=== PATIENT | male | born 1940 | race Caucasian/White ===

== ENCOUNTER 2019-01-20 15:22 | Inpatient (IN) ==
--- NOTE | 2019-01-20 15:56 | DR.HYPOGLY ---
HPI Time Seen Time Seen by Provider: 01/20/19 15:56 PCP Primary Care Physician: DOMINGUEZ Complaint Chief Complaint Doctors Comments: Patient is a 78-year-old who presents to the ED for elevated glucose. He states that his glucose was in the 500s then on recheck was in the 900s. This happened today. The patient also states today that he has had chills and muscle aches and feeling fatigued. He also reports that he has a cut on his foot that has some purulent drainage. He was advised by his primary care doctor to come to the ED. Chief Complaint:: PT CHECKED BS WITH HOME MONITOR IT WAS L22, RECHECKED 512, RECHECKED 919. USED DIFFERENT FINGERS ON EACH RECHECK. PT JERKING AND FREEZING. PT HAS SMALL TOE SORE, PT STATED TOE NAIL STARTED GROWING UNDER AND CUT TOE NAIL. NOW IT IS SORE Self Treatment fo Chief Complaint: CALLED NURSE FOR AND THEY TOLD PT TO COME TO ER Source History Provided: Patient and Family Member Mode of Arrival Mode of Arrival: Ambulatory Timing Onset of Chief Complaint: 01/20/19 PMH PMH Past Medical History: Yes Past Medical History: Arthritis, Diabetes and Hypertension Past Surgical History: Yes Surgical History: CABG/Valve Surgery Past Surgical History Comment: FIVE BYPASSES ON HEART HERNIA INGUINAL Family History History of Family Medical Conditions: Yes Family Medical History: Diabetes Mellitus and Hypertension Social History Type of Tobacco Use: None Does any household member use tobacco: No Alcohol Use: None Do you use any recreational Drugs:: No Lives With: Spouse Lives Where: Home infectious screening In the last 2 months have you had wt loss of >10#?: NO Have you had fever, night sweats or hemotysis?: No Have you traveled outside the country in the last 6 months?: No Isolation: Standard ROS Review of Systems Constitutional: Fever and Weakness Eyes: No Symptoms Reported ENTM: No Symptoms Reported Respiratoy: No Symptoms Reported Cardiovascular: No Symptoms Reported Gastrointestinal/Abdominal: Abdominal Pain Genitourinary: No Symptoms Reported Neurological: No Symptoms Reported Musculoskeletal: No Symptoms Reported Integumentary: No Symptoms Reported Hematologic/Lymphatic: No Symptoms Reported Endocrine: No Symptoms Reported Psychiatric: No Symptoms Reported All Other Systems: Reviewed and Negative PE Vital Signs Vitals: Temperature 98.6 F Pulse Rate [Left Brachial] 92 Pulse Rate 81 Respiratory Rate 18 Blood Pressure [Right Arm] 168/68 Blood Pressure [Left Arm] 139/65 Blood Pressure 132/60 O2 Sat by Pulse Oximetry 99 General Limitations: No Limitations General Appearance: Alert and In Distress Eyes Eye exam: Normal Appearance, PERRL and EOMI ENT ENT Exam: Normal Exam Neck Neck Exam: Normal Inspection and Full ROM Respiratory Respiratory Exam: Normal Lung Sounds Bilat; negative Respiratory Distress Cardiovascular Cardiovascular Exam: Regular Rate and Normal Rhythm Abdominal Exam Abdominal Exam: Normal Inspection, Normal Bowel Sounds and Soft Extremities Extremities Exam: Normal Inspection and Full ROM Neurologic Neurological Exam: Alert, Oriented X3 and CN II-XII Intact Skin Skin Exam: Warm, Dry and Intact COURSE Treatment Treatment: Critical Care: The probability of sudden, clinically significant deterioration in the patient's condition required the highest level of my preparedness to intervene urgently. The services I provided to this patient were to treat and/ or prevent clinically significant deterioration that could result in: . Services include the following: chart date review, reviewing nursing notes and/ or old charts, documentation time, acquisition consultant collaboration regarding findings and treatment options, medication orders and management, direct patient care, vital sign assessments and ordering, interpreting and reviewing diagnostic studies/ lab tests. Aggregate critical care time was 45 minutes, which includes only the time during which I was engaged in work directly related to the patient's care, as described above, whether at the bedside or elsewhere in the Emergency Department. It did not include the time spent performing other reported procedures or the services of residents, students, nurses, or physician assistants. Reevaluation 1st: Unchanged (16:28 pt with family) 2nd: Unchanged (17;06) 3rd: Improved (17:45 pt feeling improved. ) Consultation Called: 17:05 Call Returned: 17:06 Consultation Comments: hospitalist discussed care plan, with dr barron about case he accepts admission Education/Counseling Education/Counseling: Patient, Family, Education and Counseling Educated On: Treatment, Diagnosis, Prognosis and Needs for Follow Up ROR Labs Reviewed Laboratory Results Reviewed?: Yes Result Diagrams: 01/23/19 04:35 01/23/19 04:35 Laboratory: 01/20/19 23:30 Urine,Clean Catch Urine Culture - Final 01/20/19 16:27 Blood Blood Culture - Preliminary 01/20/19 16:20 Blood Blood Culture - Preliminary 01/20/19 20:45 Sputum - Expectorated Sputum Sputum Culture - Final Enterobacter Cloacae 01/20/19 20:45 Sputum - Expectorated Sputum - Final WBC 15.9 X10^3/uL (3.6-10.0) H 01/21/19 04:25 RBC 4.17 X10^6/uL (4.7-6.0) L 01/21/19 04:25 Hgb 13.3 g/dL (13.5-18.0) L 01/21/19 04:25 Hct 39.6 % (42.0-54.0) L 01/21/19 04:25 MCV 95.0 fL (80.0-100.0) 01/21/19 04:25 MCH 31.9 pg (27.0-34.0) 01/21/19 04:25 MCHC 33.6 g/dL (33.0-35.0) 01/21/19 04:25 RDW 13.9 % (11.6-16.5) 01/21/19 04:25 Plt Count 190 X10^3/uL (150.0-450.0) 01/21/19 04:25 MPV 9.6 fL (7.4-11.0) 01/21/19 04:25 Neut % (Auto) 86.4 % (42.0-75.0) H 01/21/19 04:25 Lymph % (Auto) 5.0 % (21.0-51.0) L 01/21/19 04:25 [place] % (Auto) 8.3 % (0.0-13.0) 01/21/19 04:25 Eos % (Auto) 0.0 % (0.9-2.9) L 01/21/19 04:25 Baso % (Auto) 0.3 % (0.2-1.0) 01/21/19 04:25 Neut # (Auto) 13.7 x10^3/uL (2.2-4.8) H 01/21/19 04:25 Lymph # (Auto) 0.8 X10^3/uL (1.3-2.9) L 01/21/19 04:25 [place] # (Auto) 1.3 x10^3/uL (0.3-0.8) H 01/21/19 04:25 Eos # (Auto) 0.0 x10^3/uL (0.0-0.2) 01/21/19 04:25 Baso # (Auto) 0.0 X10^3/uL (0.0-0.1) 01/21/19 04:25 Absolute Nucleated RBC 0.0 /100WBC 01/21/19 04:25 Sodium 138 mmol/L (136-145) 01/21/19 04:25 Corrected Sodium 140 mmol/L (136-145) 01/21/19 04:25 Potassium 4.1 mmol/L (3.5-5.1) 01/21/19 04:25 Chloride 103 mmol/L (98-107) 01/21/19 04:25 Carbon Dioxide 27.2 mmol/L (21-32) 01/21/19 04:25 BUN 22 mg/dL (7-18) H 01/21/19 04:25 Creatinine 1.49 mg/dL (0.70-1.30) H 01/21/19 04:25 Est GFR (MDRD) Af Amer 59 (>60) 01/21/19 04:25 Est GFR (MDRD) Non-Af 48 (>60) L 01/21/19 04:25 Glucose 185 mg/dL (65-99) H 01/21/19 04:25 POC Glucose (mg/dL) 164 mg/dL (65-99) H 01/21/19 05:18 Lactic Acid 1.6 mmol/L (0.4-2.0) 01/20/19 22:10 Calcium 8.2 mg/dL (8.5-10.1) L 01/21/19 04:25 Corrected Calcium 9.2 mg/dL (8.5-10.1) 01/21/19 04:25 Magnesium 2.0 mg/dL (1.7-2.9) 01/21/19 04:25 Total Bilirubin 1.10 mg/dL (0.2-1.0) H 01/21/19 04:25 AST 17 Units/L (15-37) 01/21/19 04:25 ALT 19 Units/L (12-78) 01/21/19 04:25 Alkaline Phosphatase 41 Units/L (46-116) L 01/21/19 04:25 Total Protein 6.2 g/dL (6.4-8.2) L 01/21/19 04:25 Albumin 2.7 g/dL (3.4-5.0) L 01/21/19 04:25 Globulin 3.5 g/dL (2.5-4.5) 01/21/19 04:25 Albumin/Globulin Ratio 0.8 Ratio (1.1-2.1) L 01/21/19 04:25 Specimen Type Random urine 01/20/19 18:40 Urine Color Yellow (YELLOW) 01/20/19 18:40 Urine Appearance Clear (CLEAR) 01/20/19 18:40 Urine pH 7.0 (5.0 - 8.0) 01/20/19 18:40 Ur Specific [place] 1.010 (1.000-1.030) 01/20/19 18:40 Urine Protein 1+ (NEGATIVE) 01/20/19 18:40 Urine Glucose (UA) 3+ (NEGATIVE) 01/20/19 18:40 Urine Ketones Negative (NEGATIVE) 01/20/19 18:40 Urine Occult Blood 2+ (NEGATIVE) 01/20/19 18:40 Urine Nitrite Negative (NEGATIVE) 01/20/19 18:40 Urine Bilirubin 2+ (NEGATIVE) 01/20/19 18:40 Urine Urobilinogen Normal (NORMAL) 01/20/19 18:40 Ur Leukocyte Esterase 2+ (NEGATIVE) 01/20/19 18:40 Urine RBC 3-5 /HPF (0-3) A 01/20/19 18:40 Urine WBC 10-20 /HPF (0-5) A 01/20/19 18:40 Ur Squamous Epith Cells Rare /HPF (NEGATIVE) 01/20/19 18:40 Urine Bacteria Negative /HPF (NEGATIVE) 01/20/19 18:40 Urine Mucus Rare /HPF (NEGATIVE) 01/20/19 18:40 Ur Culture Indicated? No/not indicated 01/20/19 18:40 Acetone, Semi-Quant Negative (NEGATIVE) 01/20/19 16:05 Other Results Comments: [id number] [id number] : 1940ex: MLocation: ER Order Number(s): [id number](s):CHEST, 1 VIEW Ordering Physician: Jesse Mullen Primary Care: Henok Small Service Date: 01/20/19 Service Time: 1630 HISTORY: Fever Study: Portable chest Comparison: 01/06/2014 Findings: Sternotomy wires. Cardiomegaly appears grossly similar to prior. The left heart border is somewhat obscured and there is patchy consolidative left lower lung opacity. There is streaky right base opacity. No visible pneumothorax or overt pulmonary edema. No sizable effusion. No acute osseous finding. Sequelae of valve replacement. IMPRESSION: 1. Evidence of left base pneumonia. Right base atelectasis or infiltrate. Radiographic follow-up is recommended. [id number]: [id number] : 1940ex: MLocation: ER Order Number(s): [id number](s):FOOT, RIGHT Ordering Physician: Jesse Mullen Primary Care: Henok Clay Dominguez Service Date: 01/20/19 Service Time: 163 HISTORY: Fever Study: Three views right foot Comparison: None Findings: No visible fracture or dislocation. Joint spaces appear preserved. No destructive osseous changes are seen. Prominent arterial calcifications are noted. Moderate heel spurs. Dorsal talonavicular spurring is seen. No soft tissue emphysema or visible radiopaque foreign body. IMPRESSION: 1. No acute osseous finding. Reported By: Compared to prior EKG Dated: 01/20/14 Rate: 106 [place]: Normal Rhythm: ST Block: None Hypertrophy: None ST: Old and Inf Opioid Opioid Risk Tool Total: 0 Total Score Risk Category: Low Risk Copyright: David RAMÍREZ predicting aberrant behaviors Diagnosis Discharge Problem: Sepsis Narrative Support Text: admitted to hospitalist. Patient presents for hyperglycemia is found to not be in DKA. Patient's vitals are positive for Sirs criteria patient is started on IV fluids and antibiotics within the ED with a 2-hour. Patient's blood cultures were drawn before antibiotics patient was admitted to hospitalist patient had frequent rechecks. Instructions Instructions: Upper Respiratory Infection, Adult, [id number] Type 2 Diabetes Mellitus, Self Care, Adult, Coij-vk-Lsea Hypertension, [id number]-[id number] Form - Blood Pressure Record Sheet Managing Your Hypertension Community-Acquired Pneumonia, Adult Forms: Excuse From Work or School Excuse From Work Patient Portal
[2019-01-20 16:18] LABS: BASOPHILS # (AUTO) 0.1 X10^3/uL (0.0-0.1); BASOPHILS % (AUTO) 0.4 % (0.2-1.0); EOSINOPHILS # (AUTO) 0.2 x10^3/uL (0.0-0.2); EOSINOPHILS % (AUTO) 1.3 % (0.9-2.9); HEMATOCRIT 44.6 % (42.0-54.0); HEMOGLOBIN 15.2 g/dL (13.5-18.0); LYMPHOCYTES # (AUTO) 0.6 X10^3/uL (1.3-2.9); LYMPHOCYTES % (AUTO) 3.8 % (21.0-51.0); MEAN CORPUSCULAR HEMOGLOBIN 32.3 pg (27.0-34.0); MEAN CORPUSCULAR HGB CONC 34.1 g/dL (33.0-35.0); MEAN CORPUSCULAR VOLUME 94.8 fL (80.0-100.0); MEAN PLATELET VOLUME 9.2 fL (7.4-11.0); MONOCYTES # (AUTO) 1.1 x10^3/uL (0.3-0.8); MONOCYTES % (AUTO) 7.2 % (0.0-13.0); NEUTROPHILS # (AUTO) 13.9 x10^3/uL (2.2-4.8); NEUTROPHILS % (AUTO) 87.3 % (42.0-75.0); PLATELET COUNT 208 X10^3/uL (150.0-450.0); RED BLOOD COUNT 4.71 X10^6/uL (4.7-6.0); RED CELL DISTRIBUTION WIDTH 13.7 % (11.6-16.5); WHITE BLOOD COUNT 15.9 X10^3/uL (3.6-10.0)
[2019-01-20 16:27] LABS: SERUM ACETONE NEGATIVE (NEGATIVE)
[2019-01-20 16:33] LABS: ALANINE AMINOTRANSFERASE 28 Units/L (12-78); ALBUMIN 3.4 g/dL (3.4-5.0); ALKALINE PHOSPHATASE 66 Units/L (46-116); ASPARTATE AMINO TRANSFERASE 21 Units/L (15-37); BLOOD UREA NITROGEN 25 mg/dL (7-18); CALCIUM 8.9 mg/dL (8.5-10.1); CARBON DIOXIDE 28.4 mmol/L (21-32); CHLORIDE 100 mmol/L (98-107); COR NA(FOR HYPERGLY) 138 mmol/L (136-145); CREATININE 1.44 mg/dL (0.70-1.30); SODIUM 135 mmol/L (136-145); TOTAL PROTEIN 7.2 g/dL (6.4-8.2); eGFR NON BLACK RACES 50 (>60)
[2019-01-20] MEDS ORDERED: ZOSYN VIAL 3.375 GRAMS 3.375 G in NS 100 ML IV + SPIKE MINIBAG* 100 ML IV ONE (16:36)
[2019-01-20] MEDS ORDERED: VANCOMYCIN HCL 1 G in D5W 250 ML IV 250 ML IV ONE (16:36)
[2019-01-20] MEDS ORDERED: VANCOMYCIN HCL ONE (16:45)
[2019-01-20] MEDS ORDERED: NS 250 ML IV 250 ML IV ONE (16:46)
[2019-01-20] MEDS: NS 1000 ML 1,000 ML IV SCH (16:55)
--- NOTE | 2019-01-20 17:00 | RAD ---
HISTORY: Fever Study: Portable chest Comparison: 01/06/2014 Findings: Sternotomy wires. Cardiomegaly appears grossly similar to prior. The left heart border is somewhat obscured and there is patchy consolidative left lower lung opacity. There is streaky right base opacity. No visible pneumothorax or overt pulmonary edema. No sizable effusion. No acute osseous finding. Sequelae of valve replacement. IMPRESSION: 1. Evidence of left base pneumonia. Right base atelectasis or infiltrate. Radiographic follow-up is recommended. Reported By:
--- NOTE | 2019-01-20 17:02 | RAD ---
HISTORY: Fever Study: Three views right foot Comparison: None Findings: No visible fracture or dislocation. Joint spaces appear preserved. No destructive osseous changes are seen. Prominent arterial calcifications are noted. Moderate heel spurs. Dorsal talonavicular spurring is seen. No soft tissue emphysema or visible radiopaque foreign body. IMPRESSION: 1. No acute osseous finding. Reported By:
[2019-01-20] MEDS ORDERED: SALINE 3% 15 ML NEB TX NEB ONE (17:55)
[2019-01-20 19:02] VITALS: BMI 34.7
[2019-01-20 19:15] LABS: BILIRUBIN,URINE 2+ (NEGATIVE); BLOOD/HEMOGLOBIN,URINE 2+ (NEGATIVE); GLUCOSE, URINE 3+ (NEGATIVE); KETONES,URINE NEGATIVE (NEGATIVE); LEUKOCYTE ESTERASE ,URINE 2+ (NEGATIVE); NITRITES,URINE NEGATIVE (NEGATIVE); PROTEIN,URINE 1+ (NEGATIVE); UROBILINOGEN,URINE NORMAL (NORMAL)
[2019-01-20 19:23] LABS: APPEARANCE,URINE CLEAR (CLEAR); COLOR,URINE YELLOW (YELLOW)
[2019-01-20 19:24] LABS: BACTERIA,URINE NEGATIVE /HPF (NEGATIVE); MUCUS,URINE RARE /HPF (NEGATIVE); SQUAMOUS EPITHELIAL CELL,UR RARE /HPF (NEGATIVE)
[2019-01-20] MEDS: MAGNESIUM SULFATE 1 GRAM/100 mL PREMIX 1 GM/100 ML BAG IV PRN ×4 (20:05→22:31)
[2019-01-20] MEDS: DUONEB 0.5 MG/3 MG NEB SCH (20:18)
[2019-01-20] MEDS: HumuLIN R SUBCUT PRN (20:26)
[2019-01-20] MEDS: SNACK - Diabetic Appropriate PO SCH (20:27)
[2019-01-20] MEDS ORDERED: NS 100 ML IV + SPIKE MINIBAG* 100 ML IV ONE (20:31)
[2019-01-20] MEDS: ZOSYN VIAL 3.375 GRAMS IV SCH (21:47)
[2019-01-21] MEDS: DUONEB 0.5 MG/3 MG NEB SCH ×6 (01:08→20:05)
[2019-01-21] MEDS ORDERED: NS 100 ML IV + SPIKE MINIBAG* 100 ML IV ONE (04:12)
[2019-01-21] MEDS: ZOSYN VIAL 3.375 GRAMS IV SCH (05:01)
[2019-01-21 05:39] LABS: BASOPHILS % (AUTO) 0.3 % (0.2-1.0); HEMATOCRIT 39.6 % (42.0-54.0); HEMOGLOBIN 13.3 g/dL (13.5-18.0); LYMPHOCYTES # (AUTO) 0.8 X10^3/uL (1.3-2.9); MEAN CORPUSCULAR HEMOGLOBIN 31.9 pg (27.0-34.0); MEAN CORPUSCULAR HGB CONC 33.6 g/dL (33.0-35.0); MEAN PLATELET VOLUME 9.6 fL (7.4-11.0); MONOCYTES # (AUTO) 1.3 x10^3/uL (0.3-0.8); MONOCYTES % (AUTO) 8.3 % (0.0-13.0); NEUTROPHILS # (AUTO) 13.7 x10^3/uL (2.2-4.8); NEUTROPHILS % (AUTO) 86.4 % (42.0-75.0); PLATELET COUNT 190 X10^3/uL (150.0-450.0); RED BLOOD COUNT 4.17 X10^6/uL (4.7-6.0); RED CELL DISTRIBUTION WIDTH 13.9 % (11.6-16.5); WHITE BLOOD COUNT 15.9 X10^3/uL (3.6-10.0)
[2019-01-21 05:42] LABS: ALBUMIN 2.7 g/dL (3.4-5.0); CALCIUM 8.2 mg/dL (8.5-10.1); CARBON DIOXIDE 27.2 mmol/L (21-32); COR CA(FOR HYPOALB) 9.2 mg/dL (8.5-10.1); CREATININE 1.49 mg/dL (0.70-1.30); TOTAL PROTEIN 6.2 g/dL (6.4-8.2)
--- NOTE | 2019-01-21 06:03 | RAD ---
History: Follow-up of pneumonia Study: Portable AP chest Comparison: Yesterday Findings: There is unchanged cardiomegaly status post CABG. There is persistent infiltrate at the left lung base. There is subsegmental atelectasis or consolidation at the right lung base as well. Impression: 1. Persistent infiltrate at the left lung base suggesting pneumonia 2. Unchanged cardiomegaly 3. Probable subsegmental atelectasis at the right lung base Reported By:
[2019-01-21] MEDS: NS 1000 ML 1,000 ML IV SCH ×2 (06:10→21:13)
[2019-01-21] MEDS ORDERED: PHARMACY CONSULT - DOSE _____ XX SCH (10:00)
--- NOTE | 2019-01-21 10:22 | DR.H&P ---
H&P - History & Physical for Day of: H&P Date: 01/20/19 - Chief Complaint Chief Complaint: COUGH, CHILLS, FEVER, INCREASED BLOOD SUGAR - History of Present Illness History of Present Illness: IS A 78 YEAR OLD MALE WHO PRESENTED TO THE ER WITH COMPLAINTS OF CHILLS AND FEVER. HE ALSO REPORTED A COUGH, A TOE WOUND, AND INCREASED BLOOD GLUCOSE LEVELS. SYMPTOMS REPORTEDLY STARTED ON THE MORNING OF ARRIVAL. ON ARRIVAL TO THE ER, VITALS WERE 101.0-97-20-93%-132/60. LABS WERE OBTAINED AND REVEALED: 15.9, SODIUM 135, BUN 25, CREATININE 1.44, GLUCOSE 233, TOTAL BILI 1.10, MAGNESIUM 1.2, TOTAL BILI 1.10, LACTIC ACID 2.2. A URINALYSIS WAS OBTAINED AND REVEALED: WBC 10-20, RBC 3-5, BACTERIA NEGATIVE, LEUKOCYTES 2+, OCCULT BLOOD 2+, GLUCOSE 3+. ACETONES WERE NEGATIVE. BLOOD, URINE, AND SPUTUM CULTURE WERE OBTAINED. A CHEST XRAY WAS OBTAINED AND REVEALED: Evidence of left base pneumonia. Right base atelectasis or infiltrate. A RIGHT FOOT XRAY WAS OBTAINED AND REVEALED: NO ACUTE OSSEOUS FINDINGS. EKG REVEALED: SINUS TACHYCARDIA WITH HR 106. HE WAS GIVEN VANCOMYCIN 1G IV X 1 IN THE ER. HE WAS ADMITTED FOR FURTHER EVALUATION AND TREATMENT OF LEFT LOWER LOBE PNEUMONIA AND SEPSIS. HE WAS STARTED ON ZOSYN 3.375G IV TID, VANCOMYCIN 1G IV DAILY, HUMULIN R SLIDING SCALE, RESPIRATORY TREATMENTS, NORMAL SALINE AT 50ML/HR, AND SUPPLEMENTAL OXYGEN. OTHERWISE, WE PLAN TO FOLLOW UP WITH AM LABS AND CHEST XRAY AND CONTINUE TO MONITOR. - Past Medical History Past Medical History: Hypertension, Diabetes, Arthritis - Past Surgical History Surgical History: CABG/Valve Surgery - Family History Family Medical History: [place], Coronary Artery Disease - Social History Does patient currently use any type of tobacco product: No Have you used tobacco products in the last 12 months: No Type of Tobacco Use: None Does any household member use tobacco: No Alcohol Use: None Drug Use: None Prescription drug monitoring program results: PDMP was not reviewed - Medications Home Medications: glipizide Allergy (Mild, Verified 01/20/19 18:05) CONTINUE taking the following medications C,E,zinc,copper [id number] [Ocuvite Adult 50 Plus] 1 cap PO DAILY 01/21/19 [History] cetirizine 10 mg PO DAILY 01/21/19 [History] cholecalciferol (vitamin D3) [Vitamin D3] 4,000 unit PO DAILY 01/21/19 [History] etodolac 300 mg PO TID PRN 01/21/19 [History] finasteride 5 mg PO DAILY 01/21/19 [History] levothyroxine 50 mcg PO DAILY 01/21/19 [History] metformin 1,000 mg PO BIDWM 01/21/19 [History] metoprolol tartrate 12.5 mg PO BID 01/21/19 [History] multivit,hwvemht-udk-fookz acd [One-A-Day Proactive 65 Plus] 400 mcg PO DAILY 01/21/19 [History] sildenafil 50 mg PO PRN PRN 01/21/19 [History] simvastatin 40 mg PO HS 01/21/19 [History] terazosin 4 mg PO HS 01/21/19 [History] testosterone cypionate 200 mg IM .EVERYTWOWEEKS 01/21/19 [History] - Review of Systems Constitutional: Fever, Chills, Weakness Eyes: No Symptoms Reported ENT: No Symptoms Reported Respiratory: See HPI, Cough, Shortness of Breath Cardiovascular: No Symptoms Reported Gastrointestinal: No Symptoms Reported Genitourinary: No Symptoms Reported Musculoskeletal: Other (RIGHT FOOT PAIN ) Skin: Wound (RIGHT TOE ) Neurological: Weakness - Physical Exam Vital Signs: Temperature 98.6 F Pulse Rate [Left Brachial] 92 Pulse Rate 86 Respiratory Rate 18 Blood Pressure [Right Arm] 168/68 Blood Pressure [Left Arm] 139/65 Blood Pressure 132/60 O2 Sat by Pulse Oximetry 93 Oriented: Normal Eyes: Normal Ear: Normal Nose: Normal Throat: Normal Respiratory: Rhonchi Throughout, Wheezes Throughout Cardiovascular: Tachycardia. negative: S3, S4, Murmur : Normal Auscultation: Bowel Sounds: Normal Palpation: Normal Tenderness: Normal Skin: Normal Musculoskeletal: Normal Psychiatric: Normal Mood Description: Calm Affect: Normal Speech Pattern: Clear - Assessment/Plan (1) Pneumonia Qualifiers: Pneumonia type: due to unspecified organism Laterality: left Lung location: lower lobe of lung Qualified Code(s): J18.1 - Lobar pneumonia, unspecified organism Status: Acute Plan: IV ZOSYN, IV VANCOMYCIN, RESPIRATORY [place], SUPPLEMENTAL OXYGEN, MONITOR LABS AND CHEST XRAY (2) Sepsis Qualifiers: Sepsis type: sepsis due to unspecified organism Sepsis acute organ dysfunction status: unspecified Qualified Code(s): A41.9 - Sepsis, unspecified organism Status: Acute Plan: IV ZOSYN, IV VANCOMYCIN, IV FLUIDS, CONTINUE TO MONITOR - Allergies Allergies/Adverse Reactions: Allergies Allergy/AdvReac Type Severity Reaction Status Date / Time glipizide Allergy Mild Verified 01/20/19 18:05
[2019-01-21] MEDS: VANCOMYCIN HCL 1 G in D5W 250 ML IV 250 ML IV SCH (10:51)
[2019-01-21] MEDS: LOVENOX INJ 40 MG SYR SC SCH ×2 (11:43→11:46)
[2019-01-21] MEDS: HumuLIN R SUBCUT PRN ×3 (11:45→20:36)
[2019-01-21] MEDS: ZOSYN VIAL 3.375 GRAMS 3.375 G in NS 100 ML IV + SPIKE MINIBAG* 100 ML IV SCH ×2 (14:08→21:13)
--- NOTE | 2019-01-21 18:34 | PCM.PROG ---
Progress Note - Progress Note for Day of Date of Exam: 01/21/19 - Subjective Subjective: WAS ADMITTED FOR LEFT LOWER LOBE PNEUMONIA AND SEPSIS. TODAY, HE IS ALERT AND ORIENTED, LYING IN BED ON MORNING ROUNDS. HE CONTINUES WITH COMPLAINTS OF SHORTNESS OF BREATH AND COUGH. ON EXAMINATION, HEART IS REGULAR IN RATE AND RHYTHM. BILATERAL LUNGS CONTINUE WITH SCATTERED WHEEZING AND RHONCHI. ABDOMEN IS ROUND, SOFT, AND NON-TENDER WITH NORMAL BOWEL SOUNDS NOTED IN ALL QUADRANTS. HIS VITALS THIS MORNING ARE: 98.6-92-18-99%-168/68. LABS WERE OBTAINED. ABNORMAL LAB VALUES INCLUDE THE FOLLOWING: WBC 15.9, RBC 4.17, HGB 13.3, HCT 39.6, BUN 22, CREATININE 1.49, GLUCOSE 185, CALCIUM 8.2, TOTAL BILI 1.10, ALK PHOS 41, TOTAL PROTEIN 6.2, ALBUMIN 2.7. BLOOD, URINE, AND SPUTUM CULTURE PENDING. A CHEST XRAY WAS OBTAINED TODAY AND REVEALED: Persistent infiltrate at the left lung base suggesting pneumonia. Unchanged cardiomegaly. Probable subsegmental atelectasis at the right lung base. HE IS CURRENTLY RECEIVING ZOSYN 3.375G IV TID, VANCOMYCIN 1G IV DAILY, HUMULIN R SLIDING SCALE, RESPIRATORY TREATMENTS, NORMAL SALINE AT 50ML/HR, AND SUPPLEMENTAL OXYGEN. WE WILL CONTINUE WITH CURRENT PLAN OF CARE TODAY. OTHERWISE, WE PLAN TO FOLLOW UP WITH AM LABS AND CHEST XRAY AND CONTINUE TO MONITOR. - Past Medical Family Social History Past Med/Fam/Surg Hx: No changes since H&P Allergies: Allergies glipizide Allergy (Mild, Verified 01/20/19 18:05) - Review of Systems ROS: No change since H&P - Vital Signs and I&O's Vital Signs: Temperature 98.6 F Pulse Rate [Left Brachial] 79 Pulse Rate 84 Respiratory Rate 20 Blood Pressure [Right Arm] 144/70 Blood Pressure [Left Arm] 139/65 Blood Pressure 132/60 O2 Sat by Pulse Oximetry 99 Intake and Output: Intake & Output 01/19/19 01/20/19 01/21/19 01/22/19 11:59 11:59 11:59 11:59 Intake Total 2134 Balance 2134 - Physical Exam Oriented: Normal Eyes: Normal Ear: Normal Nose: Normal Throat: Normal Respiratory: Generalized Cardiovascular: Normal. negative: S3, S4, Murmur : Normal Auscultation: Bowel Sounds: Normal Palpation: Normal Tenderness: Normal Skin: Normal Musculoskeletal: Normal Psychiatric: Normal Mood Description: Calm Affect: Normal Speech Pattern: Clear - Laboratory and Diagnostics Result Diagrams: 01/21/19 04:25 01/21/19 04:25 Labs: 01/20/19 20:45 Sputum - Expectorated Sputum Sputum Culture - Preliminary 01/20/19 20:45 Sputum - Expectorated Sputum - Final Laboratory WBC 15.9 X10^3/uL (3.6-10.0) H 01/21/19 04:25 RBC 4.17 X10^6/uL (4.7-6.0) L 01/21/19 04:25 Hgb 13.3 g/dL (13.5-18.0) L 01/21/19 04:25 Hct 39.6 % (42.0-54.0) L 01/21/19 04:25 MCV 95.0 fL (80.0-100.0) 01/21/19 04:25 MCH 31.9 pg (27.0-34.0) 01/21/19 04:25 MCHC 33.6 g/dL (33.0-35.0) 01/21/19 04:25 RDW 13.9 % (11.6-16.5) 01/21/19 04:25 Plt Count 190 X10^3/uL (150.0-450.0) 01/21/19 04:25 MPV 9.6 fL (7.4-11.0) 01/21/19 04:25 Neut % (Auto) 86.4 % (42.0-75.0) H 01/21/19 04:25 Lymph % (Auto) 5.0 % (21.0-51.0) L 01/21/19 04:25 [place] % (Auto) 8.3 % (0.0-13.0) 01/21/19 04:25 Eos % (Auto) 0.0 % (0.9-2.9) L 01/21/19 04:25 Baso % (Auto) 0.3 % (0.2-1.0) 01/21/19 04:25 Neut # (Auto) 13.7 x10^3/uL (2.2-4.8) H 01/21/19 04:25 Lymph # (Auto) 0.8 X10^3/uL (1.3-2.9) L 01/21/19 04:25 [place] # (Auto) 1.3 x10^3/uL (0.3-0.8) H 01/21/19 04:25 Eos # (Auto) 0.0 x10^3/uL (0.0-0.2) 01/21/19 04:25 Baso # (Auto) 0.0 X10^3/uL (0.0-0.1) 01/21/19 04:25 Absolute Nucleated RBC 0.0 /100WBC 01/21/19 04:25 Sodium 138 mmol/L (136-145) 01/21/19 04:25 Corrected Sodium 140 mmol/L (136-145) 01/21/19 04:25 Potassium 4.1 mmol/L (3.5-5.1) 01/21/19 04:25 Chloride 103 mmol/L (98-107) 01/21/19 04:25 Carbon Dioxide 27.2 mmol/L (21-32) 01/21/19 04:25 BUN 22 mg/dL (7-18) H 01/21/19 04:25 Creatinine 1.49 mg/dL (0.70-1.30) H 01/21/19 04:25 Est GFR (MDRD) Af Amer 59 (>60) 01/21/19 04:25 Est GFR (MDRD) Non-Af 48 (>60) L 01/21/19 04:25 Glucose 185 mg/dL (65-99) H 01/21/19 04:25 POC Glucose (mg/dL) 215 mg/dL (65-99) H 01/21/19 16:51 Lactic Acid 1.6 mmol/L (0.4-2.0) 01/20/19 22:10 Calcium 8.2 mg/dL (8.5-10.1) L 01/21/19 04:25 Corrected Calcium 9.2 mg/dL (8.5-10.1) 01/21/19 04:25 Magnesium 2.0 mg/dL (1.7-2.9) 01/21/19 04:25 Total Bilirubin 1.10 mg/dL (0.2-1.0) H 01/21/19 04:25 AST 17 Units/L (15-37) 01/21/19 04:25 ALT 19 Units/L (12-78) 01/21/19 04:25 Alkaline Phosphatase 41 Units/L (46-116) L 01/21/19 04:25 Total Protein 6.2 g/dL (6.4-8.2) L 01/21/19 04:25 Albumin 2.7 g/dL (3.4-5.0) L 01/21/19 04:25 Globulin 3.5 g/dL (2.5-4.5) 01/21/19 04:25 Albumin/Globulin Ratio 0.8 Ratio (1.1-2.1) L 01/21/19 04:25 Specimen Type Random urine 01/20/19 18:40 Urine Color Yellow (YELLOW) 01/20/19 18:40 Urine Appearance Clear (CLEAR) 01/20/19 18:40 Urine pH 7.0 (5.0 - 8.0) 01/20/19 18:40 Ur Specific [place] 1.010 (1.000-1.030) 01/20/19 18:40 Urine Protein 1+ (NEGATIVE) 01/20/19 18:40 Urine Glucose (UA) 3+ (NEGATIVE) 01/20/19 18:40 Urine Ketones Negative (NEGATIVE) 01/20/19 18:40 Urine Occult Blood 2+ (NEGATIVE) 01/20/19 18:40 Urine Nitrite Negative (NEGATIVE) 01/20/19 18:40 Urine Bilirubin 2+ (NEGATIVE) 01/20/19 18:40 Urine Urobilinogen Normal (NORMAL) 01/20/19 18:40 Ur Leukocyte Esterase 2+ (NEGATIVE) 01/20/19 18:40 Urine RBC 3-5 /HPF (0-3) A 01/20/19 18:40 Urine WBC 10-20 /HPF (0-5) A 01/20/19 18:40 Ur Squamous Epith Cells Rare /HPF (NEGATIVE) 01/20/19 18:40 Urine Bacteria Negative /HPF (NEGATIVE) 01/20/19 18:40 Urine Mucus Rare /HPF (NEGATIVE) 01/20/19 18:40 Ur Culture Indicated? No/not indicated 01/20/19 18:40 Acetone, Semi-Quant Negative (NEGATIVE) 01/20/19 16:05 - Plan (1) Pneumonia Status: Acute Qualifiers: Pneumonia type: due to unspecified organism Laterality: left Lung locati on: lower lobe of lung Qualified Code(s): J18.1 - Lobar pneumonia, unspecified organism Plan: IV ZOSYN, IV VANCOMYCIN, RESPIRATORY [place], SUPPLEMENTAL OXYGEN, MONITOR LABS AND CHEST XRAY (2) Sepsis Status: Acute Qualifiers: Sepsis type: sepsis due to unspecified organism Sepsis acute organ dysfunction status: unspecified Qualified Code(s): A41.9 - Sepsis, unspecified organism Plan: IV ZOSYN, IV VANCOMYCIN, IV FLUIDS, CONTINUE TO MONITOR
[2019-01-21] MEDS: SNACK - Diabetic Appropriate PO SCH (20:35)
[2019-01-22] MEDS: DUONEB 0.5 MG/3 MG NEB SCH ×6 (01:25→21:04)
[2019-01-22] MEDS: ZOSYN VIAL 3.375 GRAMS 3.375 G in NS 100 ML IV + SPIKE MINIBAG* 100 ML IV SCH ×3 (05:02→20:59)
[2019-01-22 05:34] LABS: BASOPHILS % (AUTO) 0.3 % (0.2-1.0); EOSINOPHILS # (AUTO) 0.1 x10^3/uL (0.0-0.2); EOSINOPHILS % (AUTO) 1.1 % (0.9-2.9); HEMATOCRIT 38.6 % (42.0-54.0); LYMPHOCYTES % (AUTO) 8.8 % (21.0-51.0); MEAN CORPUSCULAR HGB CONC 33.6 g/dL (33.0-35.0); MEAN CORPUSCULAR VOLUME 95.3 fL (80.0-100.0); MEAN PLATELET VOLUME 9.3 fL (7.4-11.0); MONOCYTES # (AUTO) 1.1 x10^3/uL (0.3-0.8); MONOCYTES % (AUTO) 9.5 % (0.0-13.0); NEUTROPHILS # (AUTO) 9.1 x10^3/uL (2.2-4.8); NEUTROPHILS % (AUTO) 80.3 % (42.0-75.0); PLATELET COUNT 186 X10^3/uL (150.0-450.0); RED BLOOD COUNT 4.05 X10^6/uL (4.7-6.0); WHITE BLOOD COUNT 11.3 X10^3/uL (3.6-10.0)
[2019-01-22] MEDS: HumuLIN R SUBCUT PRN ×4 (05:46→20:28)
[2019-01-22 05:50] LABS: ALANINE AMINOTRANSFERASE 24 Units/L (12-78); ALBUMIN 2.7 g/dL (3.4-5.0); ALKALINE PHOSPHATASE 50 Units/L (46-116); ASPARTATE AMINO TRANSFERASE 21 Units/L (15-37); BLOOD UREA NITROGEN 15 mg/dL (7-18); CARBON DIOXIDE 26.7 mmol/L (21-32); CHLORIDE 103 mmol/L (98-107); COR NA(FOR HYPERGLY) 140 mmol/L (136-145); CREATININE 1.25 mg/dL (0.70-1.30); SODIUM 137 mmol/L (136-145); TOTAL PROTEIN 6.3 g/dL (6.4-8.2); eGFR NON BLACK RACES 59 (>60)
[2019-01-22] MEDS: VANCOMYCIN HCL 1 G in D5W 250 ML IV 250 ML IV SCH (08:36)
[2019-01-22] MEDS: LOVENOX INJ 40 MG SYR SC SCH (08:45)
[2019-01-22] MEDS ORDERED: ETODOLAC 300 MG PO PRN (09:43)
[2019-01-22] MEDS ORDERED: C E ZINC COPPER OMEGA3S LUT PO SCH (09:45)
[2019-01-22] MEDS ORDERED: [UNRECOGNIZED DRUG - OTHER] PO SCH (09:45)
[2019-01-22] MEDS ORDERED: SYNTHROID 50 mcg TAB PO SCH (10:00)
[2019-01-22] MEDS: PROSCAR PO SCH (10:50)
[2019-01-22] MEDS: LOPRESSOR TAB 25 MG PO SCH ×2 (10:51→20:14)
[2019-01-22] MEDS: ZyrTEC TAB 10 MG PO SCH (10:51)
[2019-01-22] MEDS: VITAMIN D3 PO SCH (10:51)
[2019-01-22] MEDS: NS 1000 ML 1,000 ML IV SCH (11:01)
[2019-01-22] MEDS: GLUCOPHAGE PO SCH (16:44)
--- NOTE | 2019-01-22 18:09 | PCM.PROG ---
Progress Note - Progress Note for Day of Date of Exam: 01/22/19 - Subjective Subjective: WAS ADMITTED FOR LEFT LOWER LOBE PNEUMONIA AND SEPSIS. TODAY, HE IS ALERT AND ORIENTED, LYING IN BED ON MORNING ROUNDS. HE CONTINUES WITH COMPLAINTS OF SHORTNESS OF BREATH AND A PRODUCTIVE COUGH. ON EXAMINATION, HEART IS REGULAR IN RATE AND RHYTHM. BILATERAL LUNGS CONTINUE WITH SCATTERED WHEEZING AND RHONCHI. ABDOMEN IS ROUND, SOFT, AND NON-TENDER WITH NORMAL BOWEL SOUNDS NOTED IN ALL QUADRANTS. HIS VITALS THIS MORNING ARE: 99.3-94-18-95%-156/75. LABS WERE OBTAINED. ABNORMAL LAB VALUES INCLUDE THE FOLLOWING: WBC 11.3, RBC 4.05, HGB 13.0, HCT 38.6, GLUCOSE 230, CALCIUM 8.0, TOTAL PROTEIN 6.3, ALBUMIN 2.7. BLOOD, URINE, AND SPUTUM CULTURE PENDING. 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 HE IS CURRENTLY RECEIVING ZOSYN 3.375G IV TID, VANCOMYCIN 1G IV DAILY, HUMULIN R SLIDING SCALE, RESPIRATORY TREATMENTS, NORMAL SALINE AT 50ML/HR, AND SUPPLEMENTAL OXYGEN. WE WILL DISCONTINUE THE VANCOMYCIN. OTHERWISE, WE WILL CONTINUE WITH CURRENT PLAN OF CARE TODAY. WE PLAN TO FOLLOW UP WITH AM LABS AND CHEST XRAY AND CONTINUE TO MONITOR. - Past Medical Family Social History Past Med/Fam/Surg Hx: No changes since H&P Allergies: Allergies glipizide Allergy (Mild, Verified 01/20/19 18:05) - Review of Systems ROS: No change since H&P - Vital Signs and I&O's Vital Signs: Temperature 98.2 F Pulse Rate [Left Brachial] 80 Pulse Rate 85 Respiratory Rate 18 Blood Pressure [Right Arm] 145/66 Blood Pressure [Left Arm] 139/65 Blood Pressure 132/60 O2 Sat by Pulse Oximetry 95 Intake and Output: Intake & Output 01/20/19 01/21/19 01/22/19 01/23/19 11:59 11:59 11:59 11:59 Intake Total 213 / 5 4385 / 4385 1570 / 1570 Balance 2134 / 2134 4385 / 4385 1570 / 1570 - Physical Exam Oriented: Normal Eyes: Normal Ear: Normal Nose: Normal Throat: Normal Respiratory: Generalized Cardiovascular: Normal. negative: S3, S4, Murmur : Normal Auscultation: Bowel Sounds: Normal Tenderness: Normal Skin: Normal Musculoskeletal: Normal Psychiatric: Normal Mood Description: Calm Affect: Normal Speech Pattern: Clear, Appropriate - Laboratory and Diagnostics Result Diagrams: 01/22/19 04:25 01/22/19 04:25 Labs: 01/20/19 16:27 Blood Blood Culture - Preliminary 01/20/19 16:20 Blood Blood Culture - Preliminary 01/20/19 23:30 Urine,Clean Catch Urine Culture - Preliminary 01/20/19 20:45 Sputum - Expectorated Sputum Sputum Culture - Final Enterobacter Cloacae 01/20/19 20:45 Sputum - Expectorated Sputum - Final Laboratory WBC 11.3 X10^3/uL (3.6-10.0) H 01/22/19 04:25 RBC 4.05 X10^6/uL (4.7-6.0) L 01/22/19 04:25 Hgb 13.0 g/dL (13.5-18.0) L 01/22/19 04:25 Hct 38.6 % (42.0-54.0) L 01/22/19 04:25 MCV 95.3 fL (80.0-100.0) 01/22/19 04:25 MCH 32.0 pg (27.0-34.0) 01/22/19 04:25 MCHC 33.6 g/dL (33.0-35.0) 01/22/19 04:25 RDW 14.0 % (11.6-16.5) 01/22/19 04:25 Plt Count 186 X10^3/uL (150.0-450.0) 01/22/19 04:25 MPV 9.3 fL (7.4-11.0) 01/22/19 04:25 Neut % (Auto) 80.3 % (42.0-75.0) H 01/22/19 04:25 Lymph % (Auto) 8.8 % (21.0-51.0) L 01/22/19 04:25 [place] % (Auto) 9.5 % (0.0-13.0) 01/22/19 04:25 Eos % (Auto) 1.1 % (0.9-2.9) 01/22/19 04:25 Baso % (Auto) 0.3 % (0.2-1.0) 01/22/19 04:25 Neut # (Auto) 9.1 x10^3/uL (2.2-4.8) H 01/22/19 04:25 Lymph # (Auto) 1.0 X10^3/uL (1.3-2.9) L 01/22/19 04:25 [place] # (Auto) 1.1 x10^3/uL (0.3-0.8) H 01/22/19 04:25 Eos # (Auto) 0.1 x10^3/uL (0.0-0.2) 01/22/19 04:25 Baso # (Auto) 0.0 X10^3/uL (0.0-0.1) 01/22/19 04:25 Absolute Nucleated RBC 0.1 /100WBC 01/22/19 04:25 Sodium 137 mmol/L (136-145) 01/22/19 04:25 Corrected Sodium 140 mmol/L (136-145) 01/22/19 04:25 Potassium 4.0 mmol/L (3.5-5.1) 01/22/19 04:25 Chloride 103 mmol/L (98-107) 01/22/19 04:25 Carbon Dioxide 26.7 mmol/L (21-32) 01/22/19 04:25 BUN 15 mg/dL (7-18) 01/22/19 04:25 Creatinine 1.25 mg/dL (0.70-1.30) 01/22/19 04:25 Est GFR (MDRD) Af Amer > 60 (>60) 01/22/19 04:25 Est GFR (MDRD) Non-Af 59 (>60) 01/22/19 04:25 Glucose 230 mg/dL (65-99) H 01/22/19 04:25 POC Glucose (mg/dL) 283 mg/dL (65-99) H 01/22/19 16:34 Lactic Acid 1.6 mmol/L (0.4-2.0) 01/20/19 22:10 Calcium 8.0 mg/dL (8.5-10.1) L 01/22/19 04:25 Corrected Calcium 9.0 mg/dL (8.5-10.1) 01/22/19 04:25 Magnesium 2.0 mg/dL (1.7-2.9) 01/21/19 04:25 Total Bilirubin 0.60 mg/dL (0.2-1.0) 01/22/19 04:25 AST 21 Units/L (15-37) 01/22/19 04:25 ALT 24 Units/L (12-78) 01/22/19 04:25 Alkaline Phosphatase 50 Units/L (46-116) 01/22/19 04:25 Total Protein 6.3 g/dL (6.4-8.2) L 01/22/19 04:25 Albumin 2.7 g/dL (3.4-5.0) L 01/22/19 04:25 Globulin 3.6 g/dL (2.5-4.5) 01/22/19 04:25 Albumin/Globulin Ratio 0.8 Ratio (1.1-2.1) L 01/22/19 04:25 Specimen Type Random urine 01/20/19 18:40 Urine Color Yellow (YELLOW) 01/20/19 18:40 Urine Appearance Clear (CLEAR) 01/20/19 18:40 Urine pH 7.0 (5.0 - 8.0) 01/20/19 18:40 Ur Specific [place] 1.010 (1.000-1.030) 01/20/19 18:40 Urine Protein 1+ (NEGATIVE) 01/20/19 18:40 Urine Glucose (UA) 3+ (NEGATIVE) 01/20/19 18:40 Urine Ketones Negative (NEGATIVE) 01/20/19 18:40 Urine Occult Blood 2+ (NEGATIVE) 01/20/19 18:40 Urine Nitrite Negative (NEGATIVE) 01/20/19 18:40 Urine Bilirubin 2+ (NEGATIVE) 01/20/19 18:40 Urine Urobilinogen Normal (NORMAL) 01/20/19 18:40 Ur Leukocyte Esterase 2+ (NEGATIVE) 01/20/19 18:40 Urine RBC 3-5 /HPF (0-3) A 01/20/19 18:40 Urine WBC 10-20 /HPF (0-5) A 01/20/19 18:40 Ur Squamous Epith Cells Rare /HPF (NEGATIVE) 01/20/19 18:40 Urine Bacteria Negative /HPF (NEGATIVE) 01/20/19 18:40 Urine Mucus Rare /HPF (NEGATIVE) 01/20/19 18:40 Ur Culture Indicated? No/not indicated 01/20/19 18:40 Acetone, Semi-Quant Negative (NEGATIVE) 01/20/19 16:05 - Plan (1) Pneumonia Status: Acute Qualifiers: Pneumonia type: due to unspecified organism Laterality: left Lung location: lower lobe of lung Qualified Code(s): J18.1 - Lobar pneumonia, unspecified organism Plan: IV ZOSYN, RESPIRATORY [place], SUPPLEMENTAL OXYGEN, MONITOR LABS AND CHEST XRAY (2) Sepsis Status: Acute Qualifiers: Sepsis type: sepsis due to unspecified organism Sepsis acute organ dysfunction status: unspecified Qualified Code(s): A41.9 - Sepsis, unspecified organism Plan: IV ZOSYN, IV FLUIDS, CONTINUE TO MONITOR
[2019-01-22] MEDS ORDERED: NS 100 ML IV + SPIKE MINIBAG* 100 ML IV ONE (20:12)
[2019-01-22] MEDS: SNACK - Diabetic Appropriate PO SCH (20:57)
[2019-01-22] MEDS ORDERED: ZOCOR TAB 40 MG PO SCH (21:00)
[2019-01-22] MEDS ORDERED: HYTRIN PO SCH (21:00)
[2019-01-23] MEDS: DUONEB 0.5 MG/3 MG NEB SCH ×3 (01:10→08:33)
[2019-01-23] MEDS: NS 1000 ML 1,000 ML IV SCH (03:38)
[2019-01-23 05:20] LABS: BASOPHILS # (AUTO) 0.1 X10^3/uL (0.0-0.1); BASOPHILS % (AUTO) 0.7 % (0.2-1.0); EOSINOPHILS # (AUTO) 0.3 x10^3/uL (0.0-0.2); EOSINOPHILS % (AUTO) 4.1 % (0.9-2.9); HEMATOCRIT 36.9 % (42.0-54.0); HEMOGLOBIN 12.9 g/dL (13.5-18.0); LYMPHOCYTES # (AUTO) 1.2 X10^3/uL (1.3-2.9); LYMPHOCYTES % (AUTO) 14.4 % (21.0-51.0); MEAN CORPUSCULAR HEMOGLOBIN 32.6 pg (27.0-34.0); MEAN CORPUSCULAR HGB CONC 34.8 g/dL (33.0-35.0); MEAN CORPUSCULAR VOLUME 93.7 fL (80.0-100.0); MEAN PLATELET VOLUME 8.7 fL (7.4-11.0); MONOCYTES # (AUTO) 0.7 x10^3/uL (0.3-0.8); NEUTROPHILS # (AUTO) 6.1 x10^3/uL (2.2-4.8); NEUTROPHILS % (AUTO) 72.8 % (42.0-75.0); PLATELET COUNT 179 X10^3/uL (150.0-450.0); RED BLOOD COUNT 3.94 X10^6/uL (4.7-6.0); WHITE BLOOD COUNT 8.3 X10^3/uL (3.6-10.0)
[2019-01-23 05:28] LABS: ALANINE AMINOTRANSFERASE 55 Units/L (12-78); ALBUMIN 2.7 g/dL (3.4-5.0); ALKALINE PHOSPHATASE 56 Units/L (46-116); ASPARTATE AMINO TRANSFERASE 39 Units/L (15-37); BLOOD UREA NITROGEN 11 mg/dL (7-18); CALCIUM 8.3 mg/dL (8.5-10.1); CHLORIDE 105 mmol/L (98-107); COR CA(FOR HYPOALB) 9.3 mg/dL (8.5-10.1); COR NA(FOR HYPERGLY) 140 mmol/L (136-145); CREATININE 1.14 mg/dL (0.70-1.30); SODIUM 138 mmol/L (136-145); TOTAL PROTEIN 6.5 g/dL (6.4-8.2); eGFR NON BLACK RACES > 60 (>60)
[2019-01-23] MEDS: ZOSYN VIAL 3.375 GRAMS 3.375 G in NS 100 ML IV + SPIKE MINIBAG* 100 ML IV SCH (05:46)
[2019-01-23] MEDS: GLUCOPHAGE PO SCH (06:04)
[2019-01-23] MEDS ORDERED: SYNTHROID 50 mcg TAB PO SCH (06:30)
--- NOTE | 2019-01-23 06:45 | RAD ---
HISTORY: Shortness of breath Study: Chest AP portable Comparison: None Findings: Patient is status post median sternotomy and CABG. The heart is enlarged. No congestive heart failure is noted. No acute alveolar infiltrates or pleural effusions are identified. The bony thorax is unremarkable. IMPRESSION: Continued cardiomegaly without congestive heart failure No acute infiltrates Reported By:
[2019-01-23] MEDS: VITAMIN D3 PO SCH (09:00)
[2019-01-23] MEDS ORDERED: TAB-A-VITE PO SCH (09:00)
[2019-01-23] MEDS: LOPRESSOR TAB 25 MG PO SCH (09:01)
[2019-01-23] MEDS: PROSCAR PO SCH (09:01)
[2019-01-23] MEDS: ZyrTEC TAB 10 MG PO SCH (09:02)
[2019-01-23] MEDS: LOVENOX INJ 40 MG SYR SC SCH (09:02)
[2019-01-23 10:05] VITALS: BP 186/85
== END 2019-01-23 11:15 | disposition home or self-care (01) | DRG 177 ==
LOC: ER 15:37 → MED/SURG 15:37
PROVIDERS: ADMIT Family Medicine; ATTEND Internal Medicine
DX: B96.89 Other specified bacterial agents as the cause of diseases classified elsewhere; J15.6 Pneumonia due to other Gram-negative bacteria; R94.31 Abnormal electrocardiogram [ECG] [EKG]; A41.9 Sepsis, unspecified organism
CPT/HCPCS: 36415; 71010; 71045; 73630; 80053; 81001; 82009; 83605; 83735; 85025; 87040; 87070; 87077; 87086; 87186; 87205; 94640; 94760; 96365; 96374; 96375; 99284; A4222; S0138; G0378; J1650; J1815; J2543; J3370; J3475; J7030; J7050; J7060; J7620